=== PATIENT | female | born 1995 | race Caucasian/White ===

== ENCOUNTER 2016-12-13 16:15 | Emergency (ER) | payer MEDICAID ==
[~2016-12-13 16:15] MED LIST: FERRTAB2 PO; PNV11TAB PO
--- NOTE | 2016-12-13 17:20 | PD ---
HPI Chief Complaint Contractions, lower extremity edema, decreased movement, of vaginal discharge Date Seen: Dec 13, 2016 Time Seen: 17:16 Travel History International Travel<30 Days: No Contact w/Intl Traveler<30Days: No Known Affected Area: No History of Present Illness HPI 21-year-old at 38 weeks 1 day comes in complaining of cramping in the lower pelvis, lower extremity edema that has been present for couple weeks, some decreased movement that seems to have improved to soon as she arrives and watery vaginal discharge which started yesterday and happens every so often. Patient denies contractions or vaginal bleeding. Last pelvic examination was 2 weeks ago when she was closed at that time. Denies any antepartum complications Para: 0 : 1 History Past Medical History Medical History: Denies Significant Hx Past Surgical History Narrative Surgical Bilateral ureteral implantation as a child Tonsils and adenoids Family History Family History: Negative Social History Alcohol Use: No Tobacco Use: No Substance Abuse: No Allergies-Medications (Allergen,Severity, Reaction): Coded Allergies: No Known Allergies (Unverified , 12/07/16) Home Meds Active Scripts Multi-Vit/Iron-Folic Puwq-C59-Cxr C (Ferralet)90-1-0.012-120 mg Tab90 Tab PO DAILY #30 TAB Ref 2 Prov:Sybil Vasquez 12/01/16 Qqj202/FA/Omega3/Dha/Fish Oil ( Gummies)1 Each Tab.chew1 Bottle PO DAILY #120 BOTTLE Prov:Mt Ramachandran MD 11/25/16 Review of Systems Except as stated in HPI: all other systems reviewed are Neg Physical Exam Narrative GENERAL: Well-nourished, well-developed patient. SKIN: Warm and dry. HEAD: Normocephalic and atraumatic. EYES: No scleral icterus. No injection or drainage. ENT: No nasal drainage noted. Mucous membranes pink. Airway patent. NECK: Supple, trachea midline. No JVD. CARDIOVASCULAR: Regular rate and rhythm without murmurs, gallops, or rubs. RESPIRATORY: Breath sounds equal bilaterally. No accessory muscle use. ABDOMEN/GI: Abdomen soft, non-tender, bowel sounds present, no rebound, no guarding Gravid to [-38] weeks size Fundal Height: [-] GENITOURINARY: External Genitalia: intact and normal in appearance BUS glands: [-Normal posterior] Cervix: [-] Dilatation: [Closed-] Effacement: [50-] Station: [-High] Presentation: [-Vertex] Membranes: [intact amnisure negative] Uterine Contractions: [-Irritability] FHT's: Category: [-1] Baseline: [140-] Reactive: [-Moderate] Variability: [Moderate-] Decels: [-Absent] EXTREMITIES: No cyanosis or edema. BACK: Nontender without obvious deformity. No CVA tenderness. NEUROLOGICAL: Awake and alert. Motor and sensory grossly within normal limits. Five out of 5 muscle strength in all muscle groups. Normal speech. Data Data Vital Signs Reviewed: Yes MDM Plan 21-year-old with a category 1 heart rate tracing, GBS negative Patient is not labor cervix is closed Patient is normotensive with normal gestational edema Patient has a follow-up tomorrow Diagnosis Diagnosis: Primary Impression: 38 weeks gestation of Additional Impressions: False labor after 37 completed weeks of gestation Intact amniotic membranes during in third trimester Disposition: 01 DISCHARGE HOME Nicole Rockwell MD Dec 13, 2016 17:20
[2016-12-22] MEDS ORDERED: FERRTAB2 PO (13:19)
[2017-01-05] MEDS ORDERED: CIPR250T52 PO (11:19)
[2017-01-07] MEDS ORDERED: EPIF1AER2 TOPICAL (11:10)
[2017-01-07] MEDS ORDERED: [UNRECOGNIZED DRUG - CODE] TOPICAL (11:13)
== END 2016-12-13 20:33 | disposition home or self-care (01) ==
LOC: HOBED 16:15
DX: O47.1 False labor at or after 37 completed weeks of gestation (principal); Z3A.38 38 weeks gestation of pregnancy
CPT/HCPCS: 59025; 84112

== ENCOUNTER 2016-12-21 11:40 | Emergency (ER) | payer MEDICAID ==
[~2016-12-21] VITALS: Ht 157.5 cm; Wt 69.0 kg
[2016-12-21] VITALS (13 sets, daily range): BP systolic 120; BP diastolic 67; PULSE 103–124; RESP 18; TEMP 97.8
--- NOTE | 2016-12-21 13:45 | PD ---
HPI Chief Complaint Non reassuring heart tracing Date Seen: Dec 21, 2016 Travel History International Travel<30 Days: No Contact w/Intl Traveler<30Days: No Known Affected Area: No History of Present Illness HPI Patient is a 21 year old at 39-2/7 weeks gestation who presents today from [facility] for non-reassuring heart tracing. Patient states that she has been feeling the baby moving less over the past day. Caregiver warm and performed an NST and found to nonreassuring heart strip. They sent her here for further evaluation. Patient states that she has had a whitish vaginal discharge but denies any vaginal itching or burning. She has had pelvic cramping and an occasional contraction. She denies any vaginal bleeding, gush or leaking of fluid. 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 Family History Family History: Negative Social History Alcohol Use: No Tobacco Use: No Substance Abuse: No Allergies-Medications (Allergen,Severity, Reaction): Coded Allergies: No Known Allergies (Unverified , 12/21/16) Home Meds Active Scripts Multi-Vit/Iron-Folic Izzb-G07-Gbc C (Ferralet) 90-1-0.012-120 mg Tab, 90 TAB PO DAILY, #30 TAB 2 Refills Prov:Sybil Vasquez 12/01/16 Jjx426/FA/Omega3/Dha/Fish Oil ( Gummies) 1 Each Tab.chew, 1 BOTTLE PO DAILY for nutrition, #120 BOTTLE Prov:Mt Ramachandran MD 11/25/16 Review of Systems Except as stated in HPI: all other systems reviewed are Neg General / Constitutional: No: Fever, Chills Eyes: No: Blurred Vision, Visual changes HENT: Headaches (occasional) Cardiovascular: No: Chest Pain or Discomfort, Palpitations Respiratory: No: Cough, Short of Breath Gastrointestinal: No: Nausea, Vomiting, Abdominal Pain Genitourinary: Pelvic Pain, Discharge, No: Dysuria, Vaginal Bleeding Musculoskeletal: No: Edema Psychiatric: No: Substance Abuse Physical Exam Vital Signs Date Time Temp Pulse Resp B/P (MAP) Pulse Ox O2 Delivery O2 Flow Rate FiO2 12/21/16 13:04 97.8 121 18 120/67 (84) Narrative GENERAL: Well-nourished, well-developed patient. SKIN: Warm and dry. HEAD: Normocephalic and atraumatic. EYES: No scleral icterus. No injection or drainage. ENT: No nasal drainage noted. Mucous membranes pink. Airway patent. NECK: Supple, trachea midline. No JVD. CARDIOVASCULAR: Regular rate and rhythm without murmurs, gallops, or rubs. RESPIRATORY: Breath sounds equal bilaterally. No accessory muscle use. BREASTS: Bilateral exam showed no masses , no retractions, no nipple discharge. ABDOMEN/GI: Abdomen soft, non-tender, bowel sounds present, no rebound, no guarding Gravid to 39 weeks size GENITOURINARY: External Genitalia: intact and normal in appearance BUS glands: normal Cervix: posterior Dilatation: 1 Effacement: 0 Station: -2 Presentation: vertex Membranes: intact Uterine Contractions: none FHT's: Category: I Baseline: 135 Reactive: + Variability: moderate Decels: none EXTREMITIES: No cyanosis or edema. BACK: Nontender without obvious deformity. No CVA tenderness. NEUROLOGICAL: Awake and alert. Motor and sensory grossly within normal limits. Normal speech. Data Data Vital Signs Reviewed: Yes Orders Orders Vital Signs (Adult) .ON ADMISSION (12/21/16 12:45) ^ Labor Status (12/21/16 12:45) Us Ob Bpp Wo Nst W Repeat (12/21/16 12:45) Vital Signs (Adult) .ON ADMISSION (12/21/16 13:39) ^ Labor Status (12/21/16 13:39) ^ Non Stress Test (12/21/16 13:39) ^ Hydration (12/21/16 13:39) MDM Medical Record Reviewed: Yes Narrative Course / MDM 21 year old at 39-2/7 weeks gestation. 1. IUP- Category I tracing, reassuring. 2. Non-reassuring FHT as outpatient- Reactive NST and Category I tracing here. BPP 12/08. Discharge to home. judi Rockwell Diagnosis Diagnosis: Primary Impression: Decreased movement affecting management of in third trimester Qualified Codes: O36.8130 - Decreased movements, third trimester, not applicable or unspecified Disposition: 01 DISCHARGE HOME Condition: Stable Joanna Ibrahim MD, R3 Dec 21, 2016 13:45
[2016-12-22] MEDS ORDERED: FERRTAB2 PO (13:19)
[2017-01-05] MEDS ORDERED: CIPR250T52 PO (11:19)
[2017-01-07] MEDS ORDERED: EPIF1AER2 TOPICAL (11:10)
[2017-01-07] MEDS ORDERED: [UNRECOGNIZED DRUG - CODE] TOPICAL (11:13)
== END 2016-12-21 14:38 | disposition home or self-care (01) ==
LOC: HOBED 11:40
DX: O36.8130 Decreased fetal movements, third trimester, not applicable or unspecified (principal); Z3A.37 37 weeks gestation of pregnancy
CPT/HCPCS: 59025; 76816; 76819

== ENCOUNTER 2016-12-25 19:40 | Emergency (ER) | payer MEDICAID ==
--- NOTE | 2016-12-25 20:43 | PD ---
HPI Chief Complaint Mucousy discharge, contractions Date Seen: Dec 25, 2016 Time Seen: 20:38 Travel History International Travel<30 Days: No Contact w/Intl Traveler<30Days: No Known Affected Area: No History of Present Illness HPI 21-year-old primigravida at 39-6/7 weeks gestation who comes tonight with concerns that she might be in labor. She notes increasing cramping and watery mucousy discharge. She denies any bleeding. No decreased movement. Her recent examination was 1 cm. Weeks Gestation: 39 Para: 0 : 1 History Past Medical History Narrative Medical History of pyelonephritis with urologic surgery Anemia Obstetric History Obstetric History Primigravida Past Surgical History Narrative Surgical Urinary tract reconstruction ? appendectomy Family History Family History: Negative Social History Alcohol Use: No Tobacco Use: No Substance Abuse: No Allergies-Medications (Allergen,Severity, Reaction): Coded Allergies: No Known Allergies (Unverified , 12/24/16) Home Meds Active Scripts Multi-Vit/Iron-Folic Zrwp-O25-Rmr C (Ferralet) 90-1-0.012-120 mg Tab, 2 TAB PO DAILY, #60 TAB 2 Refills Prov:Nini Sweeney 12/22/16 Pqa696/FA/Omega3/Dha/Fish Oil ( Gummies) 1 Each Tab.chew, 1 BOTTLE PO DAILY for nutrition, #120 BOTTLE Prov:Mt Ramachandran MD 11/25/16 Review of Systems Except as stated in HPI: all other systems reviewed are Neg Physical Exam Narrative GENERAL: Well-nourished, well-developed patient. SKIN: Warm and dry. HEAD: Normocephalic and atraumatic. EYES: No scleral icterus. No injection or drainage. ENT: No nasal drainage noted. Mucous membranes pink. Airway patent. NECK: Supple, trachea midline. No JVD. CARDIOVASCULAR: Regular rate and rhythm without murmurs, gallops, or rubs. RESPIRATORY: Breath sounds equal bilaterally. No accessory muscle use. BREASTS: Bilateral exam showed no masses , no retractions, no nipple discharge. ABDOMEN/GI: Abdomen soft, non-tender, bowel sounds present, no rebound, no guarding Gravid to [-] weeks size Fundal Height: [-] GENITOURINARY: External Genitalia: intact and normal in appearance BUS glands: [-] Cervix: [-] Dilatation: [-1] Effacement: [70-] Station: [-2-] Presentation: [-] Membranes: [intact] Uterine Contractions: [-Mild irritability] FHT's: Category: [-] Baseline: [-] Reactive: [-Yes] Variability: [-] Decels: [-] EXTREMITIES: No cyanosis or edema. BACK: Nontender without obvious deformity. No CVA tenderness. NEUROLOGICAL: Awake and alert. Motor and sensory grossly within normal limits. Five out of 5 muscle strength in all muscle groups. Normal speech. Data Data Vital Signs Reviewed: Yes MDM Medical Record Reviewed: Yes Narrative Course / MDM Assessment: 39-6/7 weeks' primary not in labor Plan: Follow up for routine care Diagnosis Diagnosis: Primary Impression: 39 weeks gestation of Additional Impression: False labor after 37 completed weeks of gestation Disposition: 01 DISCHARGE HOME Condition: Good Patient Instructions: General Instructions, Having Your Baby: The Labor Process (GEN), Abdominal Pain in (ED) Additional Instructions: RETURN FOR CONTRACTIONS, LOSS OF FLUID (WATER BREAKING), VAGINAL BLEEDING, OR DECREASED MOVEMENT DRINK 8-10 LARGE GLASSES OF WATER EVERY DAY KEEP SCHEDULED APPOINTMENT WITH YOUR PROVIDER Departure Forms: Tests/Procedures Zachary Thomas MD Dec 25, 2016 20:43
[2017-01-05] MEDS ORDERED: CIPR250T52 PO (11:19)
[2017-01-07] MEDS ORDERED: EPIF1AER2 TOPICAL (11:10)
[2017-01-07] MEDS ORDERED: [UNRECOGNIZED DRUG - CODE] TOPICAL (11:13)
== END 2016-12-25 20:53 | disposition home or self-care (01) ==
LOC: HOBED 19:40
DX: O47.1 False labor at or after 37 completed weeks of gestation (principal); Z3A.39 39 weeks gestation of pregnancy
CPT/HCPCS: 59025; 84112

== ENCOUNTER 2016-12-30 12:14 | Emergency (ER) | payer MEDICAID ==
[2016-12-30 12:30] VITALS: PULSE 108
[2016-12-30 12:34] VITALS: TEMP 97.7
[2016-12-30 12:35] VITALS: BP 115/66; PULSE 104; PULSE 113; RESP 18
--- NOTE | 2016-12-30 12:47 | PD ---
HPI Chief Complaint Non-reactive NST Date Seen: Dec 30, 2016 Travel History International Travel<30 Days: No Contact w/Intl Traveler<30Days: No History of Present Illness HPI Patient is a 21-year-old at 40-4/7 weeks gestation who [facility] from [facility] for a non-reactive NST. She states that she has been feeling less movement for the past three weeks. She had a BPP on 12/21 that was 8/8. She denies any vaginal bleeding or discharge. No gush or leaking of fluid. No contractions. 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 Family History Family History: Negative Social History Alcohol Use: No Tobacco Use: No Substance Abuse: No Allergies-Medications (Allergen,Severity, Reaction): Coded Allergies: No Known Allergies (Unverified , 12/30/16) Home Meds Active Scripts Multi-Vit/Iron-Folic Lzmd-V57-Srg C (Ferralet) 90-1-0.012-120 mg Tab, 2 TAB PO DAILY, #60 TAB 2 Refills Prov:Nini Sweeney 12/22/16 Cnb435/FA/Omega3/Dha/Fish Oil ( Gummies) 1 Each Tab.chew, 1 BOTTLE PO DAILY for nutrition, #120 BOTTLE Prov:Mt Ramachandran MD 11/25/16 Review of Systems Except as stated in HPI: all other systems reviewed are Neg General / Constitutional: No: Fever, Chills Eyes: No: Blurred Vision, Visual changes HENT: No: Headaches Cardiovascular: No: Chest Pain or Discomfort, Palpitations Respiratory: No: Cough, Short of Breath Gastrointestinal: No: Nausea, Vomiting, Abdominal Pain Genitourinary: Discharge, No: Dysuria, Hematuria, Pelvic Pain, Vaginal Bleeding Musculoskeletal: No: Edema Psychiatric: No: Substance Abuse Physical Exam Vital Signs Date Time Temp Pulse Resp B/P (MAP) Pulse Ox O2 Delivery O2 Flow Rate FiO2 12/30/16 12:35 18 12/30/16 12:35 104 115/66 (82) 12/30/16 12:35 113 12/30/16 12:34 97.7 12/30/16 12:30 108 Narrative GENERAL: Well-nourished, well-developed patient. SKIN: Warm and dry. HEAD: Normocephalic and atraumatic. EYES: No scleral icterus. No injection or drainage. ENT: No nasal drainage noted. Mucous membranes pink. Airway patent. NECK: Supple, trachea midline. No JVD. CARDIOVASCULAR: Regular rate and rhythm without murmurs, gallops, or rubs. RESPIRATORY: Breath sounds equal bilaterally. No accessory muscle use. BREASTS: Bilateral exam showed no masses , no retractions, no nipple discharge. ABDOMEN/GI: Abdomen soft, non-tender, bowel sounds present, no rebound, no guarding Gravid to 40 weeks size GENITOURINARY: External Genitalia: intact and normal in appearance BUS glands: normal Cervix: posterior Dilatation: 1 Effacement: 50 Station: -2 Presentation: vertex Membranes: intact Uterine Contractions: occasional FHT's: Category: I Baseline: 140 Reactive: - Variability: moderate Decels: occasional variable decelerations EXTREMITIES: No cyanosis or edema. BACK: Nontender without obvious deformity. No CVA tenderness. NEUROLOGICAL: Awake and alert. Motor and sensory grossly within normal limits. Normal speech. Data Data Vital Signs Reviewed: Yes Orders Orders Vital Signs (Adult) .ON ADMISSION (12/30/16 12:28) ^ Labor Status (12/30/16 12:28) ^ Non Stress Test (12/30/16 12:28) ^ Hydration (12/30/16 12:28) Group B Strep: Negative MDM Medical Record Reviewed: Yes Narrative Course / MDM 21 year old at 40-4/7 weeks gestation. 1. IUP- Category I tracing 2. Non-reactive NST as outpatient- repeat NST, if reactive will obtain BPP, if non-reactive will induce dw Dr. Kirkland Addendum: Reactive NST, will obtain BPP for further evaluation. BPP 12/08. Will discharge home. Patient scheduled to have reevaluation of SIMA on Monday 01/01. Diagnosis Diagnosis: Primary Impression: Decreased movement Qualified Codes: O36.8130 - Decreased movements, third trimester, not applicable or unspecified Additional Impression: 40 weeks gestation of Disposition: DISCHARGE HOME Condition: Stable Joanna Ibrahim MD, R3 Dec 30, 2016 12:47
[2017-01-05] MEDS ORDERED: CIPR250T52 PO (11:19)
[2017-01-07] MEDS ORDERED: EPIF1AER2 TOPICAL (11:10)
[2017-01-07] MEDS ORDERED: [UNRECOGNIZED DRUG - CODE] TOPICAL (11:13)
== END 2016-12-30 15:43 | disposition home or self-care (01) ==
LOC: HOBED 12:14
DX: O36.8130 Decreased fetal movements, third trimester, not applicable or unspecified (principal); Z3A.40 40 weeks gestation of pregnancy; Z79.899 Other long term (current) drug therapy
CPT/HCPCS: 59025; 76819

== ENCOUNTER 2017-01-01 06:13 | Inpatient (IN) | payer MEDICAID ==
[2017-01-01] VITALS (11 sets, daily range): BP systolic 90–129; BP diastolic 55–79; PULSE 76–103; RESP 18; TEMP 97.6–98.3
[~2017-01-01] VITALS: Ht 157.5 cm; Wt 71.0 kg
[2017-01-01] MEDS: LACTATED RINGER'S 1000 ML INJ 1,000 ML IV SCH ×3 (05:05→17:40)
[2017-01-01] MEDS ORDERED: LACTATED RINGER'S 1000 ML INJ 1,000 ML IV PRN (06:31)
[2017-01-01] MEDS ORDERED: SODIUM CHLORID 0.9% 500 ML INJ 500 ML IV PRN (06:45)
[2017-01-01] MEDS ORDERED: LIDOCAINE HCL 1% 50 ML VIAL INFIL PRN (06:45)
[2017-01-01] MEDS ORDERED: LIDOCAINE HCL 1% 50 ML VIAL I-DERMAL PRN (06:45)
[2017-01-01] MEDS ORDERED: CITRIC ACID-SODIUM CITRATE LIQ 30 ML UDC PO SCH (06:45)
[2017-01-01] MEDS ORDERED: OXYTOCIN 30 UNITS-500ML PREMIX 500 ML IV ONE (06:45)
[2017-01-01] MEDS ORDERED: SODIUM CHLOR 0.9% 1000 ML INJ 1,000 ML IV PRN (06:51)
[2017-01-01] MEDS ORDERED: SODIUM CHLOR 0.9% 1000 ML INJ 1,000 ML OTHER PRN (06:54)
[2017-01-01] MEDS ORDERED: MISOPROSTOL 25 MCG SUPP VAGINAL ONE ×2 (07:00→14:30)
[2017-01-01] MEDS ORDERED: SODIUM CHLORIDE 0.9% FLUSH 10 ML FLUSH IV FLUSH PRN ×2 (07:00→13:00)
--- NOTE | 2017-01-01 07:15 | HHI.HP ---
HPI Chief Complaint Induction of labor Date Seen: Jan 01, 2017 (Joanna Ibrahim MD, R3) Travel History International Travel<30 Days: No Contact w/Intl Traveler<30Days: No (Joanna Ibrahim MD, R3) History of Present Illness HPI Patient is a 21-year-old at 40-6/7 weeks gestation who presents today for induction of labor at term. She denies any vaginal bleeding or discharge. No gush or leaking of fluid. Positive movement. No contractions. care with [facility]. 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 (Joanna Ibrahim MD, R3) Family History Family History: Negative (Joanna Ibrahim MD, R3) Social History Alcohol Use: No Tobacco Use: No Substance Abuse: No (Joanna Ibrahim MD, R3) Allergies-Medications (Allergen,Severity, Reaction): Coded Allergies: No Known Allergies (Unverified , 12/30/16) Home Meds Active Scripts Multi-Vit/Iron-Folic Zukz-G78-Qll C (Ferralet) 90-1-0.012-120 mg Tab, 2 TAB PO DAILY, #60 TAB 2 Refills Prov:Nini Sweeney 12/22/16 Wif033/FA/Omega3/Dha/Fish Oil ( Gummies) 1 Each Tab.chew, 1 BOTTLE PO DAILY for nutrition, #120 BOTTLE Prov:Mt Ramachandran MD 11/25/16 Review of Systems Except as stated in HPI: all other systems reviewed are Neg General / Constitutional: No: Fever, Chills Eyes: No: Blurred Vision, Visual changes HENT: No: Headaches Cardiovascular: No: Chest Pain or Discomfort, Palpitations Respiratory: No: Cough, Short of Breath Gastrointestinal: No: Nausea, Vomiting, Abdominal Pain Genitourinary: No: Dysuria, Hematuria, Pelvic Pain, Discharge, Vaginal Bleeding Musculoskeletal: No: Edema Neurologic: No: Headache Psychiatric: No: Substance Abuse (Joanna Ibrahim MD, R3) Physical Exam Vital Signs Date Time Temp Pulse Resp B/P (MAP) Pulse Ox O2 Delivery O2 Flow Rate FiO2 01/01/17 06:45 97.9 18 01/01/17 06:31 103 129/79 (96) Narrative GENERAL: Well-nourished, well-developed patient. SKIN: Warm and dry. HEAD: Normocephalic and atraumatic. EYES: No scleral icterus. No injection or drainage. ENT: No nasal drainage noted. Mucous membranes pink. Airway patent. NECK: Supple, trachea midline. No JVD. CARDIOVASCULAR: Regular rate and rhythm without murmurs, gallops, or rubs. RESPIRATORY: Breath sounds equal bilaterally. No accessory muscle use. ABDOMEN/GI: Abdomen soft, non-tender, bowel sounds present, no rebound, no guarding Gravid to 40 weeks size GENITOURINARY: External Genitalia: intact and normal in appearance BUS glands: normal Cervix: posterior Dilatation: 1 Effacement: 60 Station: -2 Presentation: vertex Membranes: intact Uterine Contractions: occasional FHT's: Category: I Baseline: 138 Reactive: + Variability: moderate Decels: none EXTREMITIES: No cyanosis or edema. BACK: Nontender without obvious deformity. No CVA tenderness. NEUROLOGICAL: Awake and alert. Motor and sensory grossly within normal limits. Normal speech. (Joanna Ibrahim MD, R3) Caprini VTE Risk Assessment Caprini VTE Risk Assessment: No/Low Risk (score <= 1) Caprini Risk Assessment Model Point Value = 1 Point Value = 2 Point Value = 3 Point Value = 5 Age 41-60 Minor surgery BMI > 25 kg/m2 Swollen legs Varicose veins or History of unexplained or recurrent spontaneous Oral contraceptives or hormone replacement Sepsis (< 1 month) Serious lung disease, including pneumonia (< 1 month) Abnormal pulmonary function Acute myocardial infarction Congestive heart failure (< 1 month) History of inflammatory bowel disease Medical patient at bed rest Age 61-74 Arthroscopic surgery Major open surgery (> 45 min) Laparoscopic surgery (> 45 min) Malignancy Confined to bed (> 72 hours) Immobilizing plaster cast Central venous access Age >= 75 History of VTE Family history of VTE Factor V Leiden Prothrombin [id number] Lupus anticoagulant Anticardiolipin antibodies Elevated serum homocysteine Heparin-induced thrombocytopenia Other congenital or acquired thrombophilia Stroke (< 1 month) Elective arthroplasty Hip, pelvis, or leg fracture Acute spinal cord injury (< 1 month) Prophylaxis Regimen Total Risk Factor Score Risk Level Prophylaxis Regimen 0-1 Low Early ambulation 2 Moderate Order ONE of the following: *Sequential Compression Device (SCD) *Heparin 5000 units SQ BID 3-4 Higher Order ONE of the following medications: *Heparin 5000 units SQ TID *Enoxaparin/Lovenox 40 mg SQ daily (WT < 150 kg, CrCl > 30 mL/min) *Enoxaparin/Lovenox 30 mg SQ daily (WT < 150 kg, CrCl > 10-29 mL/min) *Enoxaparin/Lovenox 30 mg SQ BID (WT < 150 kg, CrCl > 30 mL/min) AND/OR *Sequential Compression Device (SCD) 5 or more Highest Order ONE of the following medications: *Heparin 5000 units SQ TID (Preferred with Epidurals) *Enoxaparin/Lovenox 40 mg SQ daily (WT < 150 kg, CrCl > 30 mL/min) *Enoxaparin/Lovenox 30 mg SQ daily (WT < 150 kg, CrCl > 10-29 mL/min) *Enoxaparin/Lovenox 30 mg SQ BID (WT < 150 kg, CrCl > 30 mL/min) AND *Sequential Compression Device (SCD) (Joanna Ibrahim MD, R3) Data Data Vital Signs Reviewed: Yes Orders Orders Admit To Inpatient (01/01/17 ) Code Status (01/01/17 06:31) Vital Signs (Adult) .Per protocol (01/01/17 06:31) Activity Oob Ad Leila (01/01/17 06:31) Heart (01/01/17 06:31) Amnioinfusion (01/01/17 06:31) Urinary Catheter Management .ONCE (01/01/17 06:31) Diet Liquid (01/01/17 Breakfast) Lactated Ringer's 1000 Ml Inj (Lr 1000 M (01/01/17 06:31) Lactated Ringer's 1000 Ml Inj (Lr 1000 M (01/01/17 06:31) Sodium Chlorid 0.9% 500 Ml Inj (Ns 500 M (01/01/17 06:45) Sodium Chlor 0.9% 1000 Ml Inj (Ns 1000 M (01/01/17 06:51) Lidocaine 1% Inj (50 Ml) (Xylocaine 1% I (01/01/17 06:45) Citric Acid-Sodium Citrate Liq (Bicitra (01/01/17 06:45) Fentanyl Inj (Fentanyl Inj) (01/01/17 06:45) Fentanyl Inj (Fentanyl Inj) (01/01/17 06:45) Complete Blood Count With Diff (01/01/17 06:31) Hold Clot (01/01/17 06:31) Abo/Rh Blood Type (01/01/17 06:31) Urinalysis - C+S If Indicated (01/01/17 06:31) Resp Oxygen Non Rebreathe Mask (01/01/17 ) ^ Epidural / Intrathecal Infus (01/01/17 06:31) Oxytocin 30 Units-500ml Premix (Pitocin (01/01/17 06:45) Lidocaine 1% Inj (50 Ml) (Xylocaine 1% I (01/01/17 06:45) Light Mineral Oil (Muri-Lube Oil) (01/01/17 06:45) Inpatient Certification (01/01/17 ) Specimen To Be Collected PRN (01/01/17 06:31) ^ Labor Induction (01/01/17 06:54) ^ Vaginal Insert (01/01/17 06:54) ^ Vaginal Lavage (01/01/17 06:54) Heart (01/01/17 06:54) Sodium Chloride 0.9% Flush (Ns Flush) (01/01/17 09:00) Sodium Chloride 0.9% Flush (Ns Flush) (01/01/17 07:00) Sodium Chlor 0.9% 1000 Ml Inj (Ns 1000 M (01/01/17 06:54) Misoprostol Supp (Cytotec Supp) (01/01/17 07:00) Misoprostol Supp (Cytotec Supp) (01/01/17 11:00) Group B Strep: Negative (Jaonna Ibrahim MD, R3) Assessment/Plan Problem List: (1) 40 weeks gestation of ICD Codes: Z3A.40 - 40 weeks gestation of Assessment and Plan 21 year old at 40-6/7 weeks gestation. 1. IUP- Category I tracing, reassuring. 2. IOL for term- Cytotec for cervical ripening followed by Pitocin 3. GBS negative. dw Dr. Sparks and Dr. Painting R1 (Joanna Ibrahim MD, R3) Attending Attestation Patient seen and evaluated with resident under direct supervision, agree with assessment and plan. (Zcahary Thomas MD) Joanna Ibrahim MD, R3 Jan 01, 2017 07:15 Zachary Thomas MD Jan 01, 2017 18:57
[2017-01-01 07:30] LABS: AUTOMATED NEUTROPHIL # 7.7 TH/MM3 (1.8-7.7); BASOPHIL % 0.2 % (0.0-2.0); EOSINOPHIL # 0.1 TH/MM3 (0-0.4); EOSINOPHIL % 1.1 % (0.0-4.0); HEMATOCRIT 36.6 % (35.0-46.0); HEMO FLAGS DIFF FINAL; LYMPH % 17.5 % (9.0-44.0); LYMPHOCYTE # 2.1 TH/MM3 (1.0-4.8); MEAN CELL VOLUME 74.1 FL (80.0-100.0); MEAN CORPUSCULAR HEMOGLOBIN 23.6 PG (27.0-34.0); MEAN CORPUSCULAR HGB CONC 31.9 % (32.0-36.0); MONO % 15.3 % (0.0-8.0); NEUT % 65.9 % (16.0-70.0); PLATELET COUNT 193 TH/MM3 (150-450); RED BLOOD COUNT 4.94 MIL/MM3 (4.00-5.30); RED CELL DISTRIBUTION WIDTH 24.5 % (11.6-17.2); WHITE BLOOD COUNT 11.7 TH/MM3 (4.0-11.0)
[2017-01-01 07:44] LABS: BACTERIA, URINE OCC /hpf; BLOOD, URINE NEG (NEG); GLUCOSE,URINE NEG (NEG); KETONE, URINE NEG (NEG); MUCUS URINE FEW /lpf (OCC); NITRITE,URINE NEG (NEG); PH, URINE 6.5 (5.0-8.5); SQUAMOUS EPITHELIAL CELL URINE 9 /hpf (0-5); URINE COLOR YELLOW (YELLW/STRAW)
[2017-01-01 07:46] LABS: COMMENT (UR) CULT NOT INDICATED; CULTURE IF INDICATED CULT NOT INDICATED
[2017-01-01] MEDS: SODIUM CHLORIDE 0.9% FLUSH 10 ML FLUSH IV FLUSH SCH ×2 (09:00→21:00)
[2017-01-01] MEDS ORDERED: MISOPROSTOL 25 MCG SUPP VAGINAL PRN ×3 (11:00→17:00)
[2017-01-01] MEDS ORDERED: SODIUM CHLORIDE 0.9% FLUSH 10 ML FLUSH IV FLUSH SCH (21:00)
[2017-01-02] VITALS (33 sets, daily range): BP systolic 95–138; BP diastolic 46–95; PULSE 64–103; RESP 14–18; TEMP 97.7–98.5; O2SAT 100
[2017-01-02] MEDS ORDERED: ONDANSETRON HCL 4 MG/2 ML VIAL ONE (00:21)
[2017-01-02] MEDS ORDERED: ONDANSETRON HCL 4 MG/2 ML VIAL IV PUSH PRN (00:45)
[2017-01-02] MEDS ORDERED: OXYTOCIN 30 UNITS-500ML PREMIX 500 ML ONE (01:35)
[2017-01-02] MEDS ORDERED: OXYTOCIN 30 UNITS/NS 500ML PREMIX IV SCH (02:00)
[2017-01-02] MEDS ORDERED: ePHEDrine/NS 25 MG/5 ML SYR ONE (03:51)
[2017-01-02] MEDS ORDERED: fentaNYL 2MCG-BUPIV 0.125% INJ 100 ML ONE (03:51)
[2017-01-02] MEDS ORDERED: DO NOT ADMINISTER ANTICOAGULANTS PRN (05:00)
[2017-01-02] MEDS ORDERED: NO SYSTEM NARCOTICS PRN (05:00)
[2017-01-02] MEDS ORDERED: fentaNYL 2MCG-BUPIV 0.125% 100 ML EPIDURAL SCH (05:00)
[2017-01-02] MEDS ORDERED: ePHEDrine/NS 25 MG/5 ML SYR IV PRN (05:00)
[2017-01-02] MEDS: MINERAL OIL 10 ML VIAL TOPICAL PRN (07:38)
--- NOTE | 2017-01-02 07:59 | PD.OB.DELI ---
Weeks gestation: 41 Gest age assessed date: Jan 02, 2017 Gest age assessed time: 07:29 Pt started active labor?: Yes Medical induction of labor?: Yes Artificial rupture of membrane: Yes Artificial ROM date: Jan 01, 2017 Anesthesia: Epidural Episiotomy: None Vaginal Delivery: Normal, Spontaneous Presentation: Occiput anterior Nuchal Cord: x2 Delayed cord clamping (45 sec): Yes Infant: Female Delivery date: Jan 02, 2017 Delivery time: 07:29 One Minute : 8 Five Minute : 9 Weight: 6#14 Placenta: Spontaneous delivery, Intact, 3 vessel cord Laceration: Vaginal laceration, 2 deg Repair: Vicryl running Estimated blood loss: 200 Zachary Thomas MD Jan 02, 2017 07:59
[2017-01-02] MEDS ORDERED: SODIUM CHLORIDE 0.9% FLUSH 10 ML FLUSH IV FLUSH PRN (08:00)
[2017-01-02] MEDS ORDERED: ZOLPIDEM TARTRATE 5 MG TAB PO PRN (08:00)
[2017-01-02] MEDS ORDERED: BENZOCAINE 20% TOPICAL SPRAY 60 ML CAN TOPICAL PRN (08:00)
[2017-01-02] MEDS ORDERED: OXYTOCIN 30 UNITS-500ML PREMIX 500 ML IV SCH (08:00)
[2017-01-02] MEDS ORDERED: WITCH HAZEL 50%/GLYCERIN 12.5% 40 PAD JAR TOPICAL PRN (08:00)
[2017-01-02] MEDS ORDERED: ONDANSETRON ODT 4 MG TAB PO PRN (08:00)
[2017-01-02] MEDS ORDERED: ALUMINUM/MAGNESIUM/SIMETH 30 ML CUP PO PRN (08:00)
[2017-01-02] MEDS ORDERED: SODIUM CHLORIDE 0.9% FLUSH 10 ML FLUSH IV FLUSH SCH (09:00)
[2017-01-02] MEDS ORDERED: DOCUSATE SODIUM 50 MG/SENNA 8.6 MG TAB PO PRN (09:00)
[2017-01-02] MEDS: ACETAMINOPHEN 325 MG TAB PO PRN (14:50)
[2017-01-02] MEDS: IBUPROFEN 600 MG TAB PO PRN (14:50)
[2017-01-02] MEDS ORDERED: MEASLES, MUMPS, RUBELLA VACCINE 0.5 ML VIAL SQ ONE (16:00)
[2017-01-02] MEDS ORDERED: DIPHTH/TETANUS/ACEL PERTUSSIS (BOOSTER) 0.5 ML VIAL/PFS IM ONE (16:00)
--- NOTE | 2017-01-03 08:34 | HHI.OB ---
Subjective Post Day: 1 Remarks Patient is a 21-year-old delivered at 40 weeks and 6 days. Patient is day 1 after after induction of labor with Cytotec and Pitocin. Patient's pain is well-controlled. Patient reports eating and drinking without any nausea or vomiting. Patient reports minimal bleeding. Patient has passed gas but no bowel movements. Patient is walking without lower extremity pain or shortness of breath. Patient reports desire for outpatient contraception and breast-feeding. Objective Vitals/I&O Vital Signs Date Time Temp Pulse Resp B/P (MAP) Pulse Ox O2 Delivery O2 Flow Rate FiO2 01/02/17 20:49 97.8 77 18 110/75 (87) 01/02/17 09:50 97.7 67 14 01/02/17 09:50 113/62 (79) 01/02/17 09:00 18 01/02/17 08:54 74 109/54 (72) Objective Remarks GENERAL: Well-nourished, well-developed patient. CARDIOVASCULAR: Regular rate and rhythm without murmurs, gallops, or rubs. RESPIRATORY: Breath sounds equal bilaterally. No accessory muscle use. ABDOMEN/GI: Abdomen soft, non-tender. Fundus: Firm, non-tender at umbilicus. GENITOURINARY: Light to moderate bleeding. EXTREMITIES: No cyanosis or edema, non-tender, without signs of DVT. Medications and IVs Current Medications Medications (Trade) Dose Ordered Sig/Stephanie Route Start Time Stop Time Status Last Admin Lactated Ringer's 1,000 ml @ 125 mls/hr Q8H IV 01/01/17 06:31 01/01/17 05:05 Lactated Ringer's 1,000 ml @ 3,000 mls/hr Q20M PRN IV 01/01/17 06:31 Sodium Chloride 1,000 ml @ 100 mls/hr Q10H PRN IV 01/01/17 06:51 (Xylocaine 1% Inj (50 ml)) 0.1 ml UNSCH X1 PRN I-DERMAL 01/01/17 06:45 01/04/17 06:44 (Bicitra Liq) 30 ml DIRECTOR OF TECHNOLOGY PO 01/01/17 06:45 01/05/17 06:44 (fentaNYL INJ) 50 mcg Q1H PRN IV PUSH 01/01/17 06:45 (fentaNYL INJ) 100 mcg Q1H PRN IV PUSH 01/01/17 06:45 (Muri-Lube Oil) 10 ml UNSCH PRN TOPICAL 01/01/17 06:45 01/02/17 07:38 (NS Flush) 2 ml BID IV FLUSH 01/01/17 09:00 (NS Flush) 2 ml UNSCH PRN IV FLUSH 01/01/17 07:00 (NS Flush) 2 ml BID IV FLUSH 01/01/17 21:00 (NS Flush) 2 ml UNSCH PRN IV FLUSH 01/01/17 13:00 (Zofran Inj) 4 mg Q6H PRN IV PUSH 01/02/17 00:45 01/02/17 00:25 Oxytocin 500 ml @ 0 mls/hr TITRATE IV 01/02/17 02:00 01/02/17 02:08 Fentanyl/ Bupivacaine HCl 100 ml @ 0 mls/hr TITRATE EPIDURAL 01/02/17 05:00 01/02/17 05:06 (NS Flush) 2 ml BID IV FLUSH 01/02/17 09:00 (NS Flush) 2 ml UNSCH PRN IV FLUSH 01/02/17 08:00 (Tylenol) 650 mg Q4H PRN PO 01/02/17 08:00 01/02/17 14:50 (Motrin) 600 mg Q6H PRN PO 01/02/17 08:00 01/02/17 14:50 (Americaine 20% Top Spr) 1 spray Q4H PRN TOPICAL 01/02/17 08:00 01/02/17 18:42 (Tucks Pads) 1 applic QID PRN TOPICAL 01/02/17 08:00 01/02/17 18:42 (Franci-Colace) 2 tab Q12HR PRN PO 01/02/17 09:00 (Ambien) 5 mg HS PRN PO 01/02/17 08:00 (Mag-Al Plus Susp Liq) 15 ml Q8H PRN PO 01/02/17 08:00 (Zofran Odt) 4 mg Q6H PRN PO 01/02/17 08:00 Assessment/Plan Problem List: (1) 40 weeks gestation of ICD Codes: Z3A.40 - 40 weeks gestation of (2) (spontaneous vaginal delivery) ICD Codes: O80 - Encounter for full-term uncomplicated delivery Assessment and Plan Patient is a 21-year-old delivered at 40 weeks and 6 days. Patient is day 1 after after induction of labor with Cytotec and Pitocin. Patient was counseled to do 6 weeks of pelvic rest. Patient was counseled to follow up in 6 weeks. Patient requested follow-up and contraception. --AF VSS --Continue routine care --Motrin and Percocet when necessary for pain --Encourage OOB --Pelvic rest for 6 weeks will need follow-up appointment at that time. --Contraception: Patient will arrange with her outpatient provider --Anticipate discharge today or tomorrow d/w Dr. Isael Beckett,Milind Stein MD R2 Jan 03, 2017 08:34
[2017-01-03] MEDS ORDERED: IBUP-232 PO (08:38)
--- NOTE | 2017-01-03 08:38 | HHI.DCPOC ---
Discharge Care Plan Diagnosis: (1) 40 weeks gestation of (2) (spontaneous vaginal delivery) Report Symptoms to Your Doctor -Temperature above 100.5 degrees -Redness, of incision or excessive or foul smelling drainage -Unusual pain or calf pain -Increased vaginal bleeding -Painful or difficulty urinating -Feelings of extreme sadness or anxiety after 2 weeks Goals to Promote Your Health * To prevent worsening of your condition and complications, please follow-up with her doctor. * To maintain your health at the optimal level, please follow your doctor's recommendations. Directions to Meet Your Goals Take your medications as prescribed Follow your dietary instruction Follow activity as directed Ensure plenty of rest for recovery Drink fluids for hydration Keep your appointments as scheduled Take your immunizations and boosters as scheduled If your symptoms worsen call your PCP, if no PCP go to Urgent Care Center or Emergency Room Smoking is Dangerous to Your Health. Avoid second hand smoke Call the 24-hour crisis hotline for domestic abuse at Milind Beckett MD R2 Jan 03, 2017 08:38
[2017-01-03 09:20] VITALS: BP 113/64; PULSE 73; RESP 14; TEMP 98
[2017-01-03] MEDS: ACETAMINOPHEN 325 MG TAB PO PRN (12:27)
[2017-01-03] MEDS: IBUPROFEN 600 MG TAB PO PRN (12:28)
[2017-01-05] MEDS ORDERED: CIPR250T52 PO (11:19)
[2017-01-07] MEDS ORDERED: EPIF1AER2 TOPICAL (11:10)
[2017-01-07] MEDS ORDERED: [UNRECOGNIZED DRUG - CODE] TOPICAL (11:13)
== END 2017-01-03 14:50 | disposition home or self-care (01) | DRG 775 ==
LOC: H2EB 06:13 → H1EA 01-02 10:03
PROVIDERS: ADMIT Obstetrics & Gynecology; ATTEND Obstetrics & Gynecology
PROC: 3E0P7GC Introduction of Other Therapeutic Substance into Female Reproductive, Via Natural or Artificial Opening (ICD-10-PCS; 2017-01-01)
PROC: 10907ZC Drainage of Amniotic Fluid, Therapeutic from Products of Conception, Via Natural or Artificial Opening (ICD-10-PCS; 2017-01-01)
PROC: 10E0XZZ Delivery of Products of Conception, External Approach (ICD-10-PCS; principal; 2017-01-02)
PROC: 0UQGXZZ Repair Vagina, External Approach (ICD-10-PCS; 2017-01-02)
PROC: 00HU33Z Insertion of Infusion Device into Spinal Canal, Percutaneous Approach (ICD-10-PCS; 2017-01-02)
PROC: 3E0R3CZ (ICD-10-PCS; 2017-01-02)
DX: O48.0 Post-term pregnancy (principal); O71.4 Obstetric high vaginal laceration alone; O69.81X0 Labor and delivery complicated by cord around neck, without compression, not applicable or unspecified; Z3A.41 41 weeks gestation of pregnancy; Z37.0 Single live birth
CPT/HCPCS: 59025; 76819; 81001; 85025; 86900; 86901; J2405; J2590; J7120

== ENCOUNTER 2017-09-29 19:51 | Emergency (ER) | payer MEDICAID ==
[~2017-09-29] VITALS: Ht 157.5 cm; Wt 62.1 kg
[~2017-09-29 19:51] MED LIST changes: +CIPR250T52 PO; +EPIF1AER2 TOPICAL; -FERRTAB2 PO; +IBUP-232 PO; +[UNRECOGNIZED DRUG - CODE] TOPICAL
[2017-09-29 19:59] VITALS: BP 113/61; PULSE 106; RESP 16; TEMP 97.8; O2SAT 98
[2017-09-29 20:21] LABS: BILIRUBIN, URINE NEG (NEG); BLOOD, URINE NEG (NEG); GLUCOSE,URINE NEG (NEG); KETONE, URINE NEG (NEG); NITRITE,URINE NEG (NEG); PH, URINE 7.5 (5.0-8.5); URINE COLOR YELLOW (YELLW/STRAW); URINE LEUKOCYTE ESTERASE NEG (NEG)
[2017-09-29 20:27] LABS: SQUAMOUS EPITHELIAL CELL URINE 0-5 /hpf (0-5); WBC, URINE 0-2 /hpf (0-5)
[2017-09-29] MEDS ORDERED: PNV11TAB PO ×2 (21:15→21:26)
--- NOTE | 2017-09-29 21:27 | PD ---
HPI Chief Complaint: Abdominal Pain Time Seen by Provider: 20:53 Travel History International Travel<30 days: No Contact w/Intl Traveler<30days: No History of Present Illness HPI Patient is a female oconnell intermittent nausea and vomiting. Patient states she she has not had a period in a few months, states the beginning of this she was having some vaginal spotting. She has not yet followed up with an GASKET WINDER. She is concerned that she has not yet established an GASKET WINDER and wants to make sure her baby is she has some cough and congestion but no vaginal bleeding vaginal discharge loss of fluid currently, no abdominal pain, no leg swelling no visual changes and no dysuria. He states his symptoms are mild, for the past few days, gradually worsening, associated signs and symptoms and context as above PFSH Past Medical History Diminished Hearing: No Tetanus Vaccination: Unknown Influenza Vaccination: No ?: : 2 Para: 1 Past Surgical History Genitourinary Surgery: Yes (RECONSTUCTIVE SURGERY ON URETERS A CHILD) Social History Alcohol Use: No Tobacco Use: No Substance Use: No Allergies-Medications (Allergen,Severity, Reaction): Coded Allergies: No Known Allergies (Unverified Adverse Reaction, Unknown, 09/29/17) Reported Meds & Prescriptions Reported Meds & Active Scripts Active Gummies (Hhg552/FA/Omega3/Dha/Fish Oil) 1 Each Tab.chew 1 Bottle PO DAILY Reported Gummies (Zbt529/FA/Omega3/Dha/Fish Oil) 400 Mcg-32.5 Mg (25 Mg-7.5 Mg) Tab.chew PO DAILY Review of Systems Except as stated in HPI: all other systems reviewed are Neg Physical Exam Narrative GENERAL: Well-developed well-nourished quite pleasant female in no obvious distress SKIN: Focused skin assessment warm/dry. HEAD: Atraumatic. Normocephalic. EYES: Pupils equal and round. No scleral icterus. No injection or drainage. ENT: No nasal bleeding or discharge. Mucous membranes pink and moist. NECK: Trachea midline. No JVD. CARDIOVASCULAR: Minimally tachycardic with regular rhythm. No murmur appreciated. RESPIRATORY: No accessory muscle use. Clear to auscultation. Breath sounds equal bilaterally. GASTROINTESTINAL: Abdomen soft, non-tender, gravid. Hepatic and splenic margins not palpable. Nontender, benign, no rebound no percussive tenderness peer GENITOURINARY: Declined by patient peer MUSCULOSKELETAL: No obvious deformities. No clubbing. No cyanosis. No edema. NEUROLOGICAL: Awake and alert. No obvious cranial nerve deficits. Motor grossly within normal limits. Normal speech. PSYCHIATRIC: Appropriate mood and affect; insight and judgment normal. Data Data Last Documented VS Vital Signs Date Time Temp Pulse Resp B/P (MAP) Pulse Ox O2 Delivery O2 Flow Rate FiO2 09/29/17 21:50 88 20 118/68 (85) 99 09/29/17 19:59 97.8 Orders Orders Ed Urine Pregnancytest Poc (09/29/17 19:55) Urinalysis - C+S If Indicated (09/29/17 19:55) Ed Poc Ultrasound (09/29/17 ) Electrocardiogram (09/29/17 20:07) Ed Poc Ultrasound (09/29/17 ) Ed Discharge Order (09/29/17 21:27) Labs Laboratory Tests Test 09/29/17 20:00 Urine Color YELLOW Urine Turbidity CLEAR Urine pH 7.5 Urine Specific [place] LESS/EQUAL 1.005 Urine Protein NEG mg/dL Urine Glucose (UA) NEG mg/dL Urine Ketones NEG mg/dL Urine Occult Blood NEG Urine Nitrite NEG Urine Bilirubin NEG Urine Urobilinogen 0.2 MG/DL Urine Leukocyte Esterase NEG Urine WBC 0-2 /hpf Urine Squamous Epithelial Cells 0-5 /hpf Microscopic Urinalysis Comment CULT NOT INDICATED MDM Medical Decision Making Medical Screen Exam Complete: Yes Emergency Medical Condition: Yes Differential Diagnosis Intrauterine , URI, pneumonia highly unlikely, acute abdomen highly unlikely. Narrative Course Patient room to the emergency department, appears well and nontoxic, blood pressure normal, UA shows no proteinuria no bacteria, bedside ultrasound was reassuring for second trimester . She has no complaints of warrant further workup at this time. Discussed p.o. hydration follow with an GASKET WINDER and return to ED criteria. She stable for discharge per Procedures Procedure Narrative ULTRASOUND: Transabdominal views obtained of the uterus, sewing a single intrauterine , patient measures 19 weeks 6 days by biparietal diameter , heart tones 248 by M-mode. motion observed, no obvious abnormalities and no pelvic free fluid Diagnosis Primary Impression: URI (upper respiratory infection) Additional Impression: Referrals: Desmond Duenas MD Patient Instructions: General Instructions, at 19 to 22 Weeks (DC), Upper Respiratory Infection (DC) Departure Forms: Tests/Procedures, Work Release Enter return to work date: Oct 01, 2017 Med/Other Pt SpecificInfo: Prescription(s) given Scripts Fjs672/FA/Omega3/Dha/Fish Oil ( Gummies) 1 Each Tab.chew 1 BOTTLE PO DAILY for nutrition, #120 BOTTLE Prov: Manuel Cody MD 09/29/17 Disposition: 01 DISCHARGE HOME Condition: Stable Manuel Cody MD September 29, 2017 21:27
[2017-09-29 21:50] VITALS: BP 118/68
--- NOTE | 2017-09-30 14:48 | EKG ---
Date Performed: 09/29/2017 Time Performed: 20:07:44 PTAGE: 22 years EKG: SINUS TACHYCARDIA ABNORMAL RHYTHM ECG NO PREVIOUS TRACING DOCTOR: Sami Cobian Interpretating Date/Time 09/30/2017 14:45:23
== END 2017-09-29 22:12 | disposition home or self-care (01) ==
LOC: PHED 19:51
DX: O99.512 Diseases of the respiratory system complicating pregnancy, second trimester (principal); J06.9 Acute upper respiratory infection, unspecified; R00.0 Tachycardia, unspecified; R94.31 Abnormal electrocardiogram [ECG] [EKG]; Z3A.19 19 weeks gestation of pregnancy; Z34.92 Encounter for supervision of normal pregnancy, unspecified, second trimester
CPT/HCPCS: 81001; 84703; 93005; 99285

== ENCOUNTER → 2017-10-11 | Outpatient (CLI) | payer MEDICAID ==
[~2017-10-11] MED LIST changes: -CIPR250T52 PO; -EPIF1AER2 TOPICAL; -IBUP-232 PO; -[UNRECOGNIZED DRUG - CODE] TOPICAL
== END ==
LOC: HPND 13:15
PROVIDERS: ATTEND Obstetrics & Gynecology
DX: O35.1XX0 Maternal care for (suspected) chromosomal abnormality in fetus, not applicable or unspecified (principal); O09.32 Supervision of pregnancy with insufficient antenatal care, second trimester; Z36.3 Encounter for antenatal screening for malformations
CPT/HCPCS: 76811

== ENCOUNTER 2018-02-09 02:33 | Inpatient (IN) ==
[2018-02-09] MEDS ORDERED: Sod Chloride 0.9% Inj 1,000 ML IV.CONT PRN (03:16)
[2018-02-09] MEDS ORDERED: Naloxone Inj 0.4 MG/ML Vial IV.PUSH PRN ×2 (03:16→12:00)
[2018-02-09] MEDS ORDERED: Sodium Chlor 0.9% Inj 500 ML IV.SIG PRN (03:16)
[2018-02-09] MEDS ORDERED: fentaNYL Citrate Inj 100 MCG/2 ML Ampul IV.PUSH PRN (03:16)
[2018-02-09] MEDS ORDERED: Oxytocin 30 Units/500ml Premix 30 UNITS/500 ML BAG IV.SIG ONE (03:16)
--- NOTE | 2018-02-09 03:24 | ED ---
History of Present Illness Primary Care Physician: UNKNOWN Chief Complaint: Contractions History of Present Illness: 22-year-old at 39/3 presenting to the OB ED with complaints of contractions. Patient states that around 10:30 PM she began having contractions that initially were every 10 minutes. Throughout the night they become more intense and more frequent now occurring every 2-3 minutes. She denies any gush of fluid, vaginal bleeding or decreased movement. She also denies any fever or chills, chest pain or shortness of breath, dysuria. She states she has had an uncomplicated and is GBS negative. Patient is currently undecided on an epidural. Review of Systems All other systems reviewed negative except as stated in HPI PMFSH - Medical / Surgical Hx Neg / Unobtainable Medical Problems Denied: Yes - Surgical History Surgical History: Surgical History (Last Reviewed 02/09/18 @ 03:19 by Mckay Ribeiro MD, R2) History of placement of ear tubes History of tonsillectomy and adenoidectomy History of ureter repair - Family History Family History: Family History (Last Updated 02/09/18 @ 03:19 by Mckay Ribeiro MD, R2) Other Family history normal - Tobacco History Smoking Status: Never smoker - Alcohol History How Often Do You Have a Drink Containing Alcohol: Never - Substance Use History Substance History: No History of Abuse - Travel History History of Recent Travel: No Medications and Allergies Allergies Allergy/AdvReac Type Severity Reaction Status Date / Time No Known Allergies Allergy Unverified 02/06/18 16:25 Home Medications Medication Instructions Recorded Confirmed Type 3 tab PO DAILY 02/01/18 02/06/18 History Exam Vital signs: Vital Signs 02/09/18 02:48 02/09/18 02:49 Temperature 97.7 F Pulse Rate 94 H Respiratory Rate 16 Blood Pressure 117/65 Intake & Output 02/08/18 02/08/18 02/09/18 06:59 18:59 06:59 Weight 69.4 kg Narrative: GENERAL: Well-nourished, well-developed patient. SKIN: Warm and dry. HEAD: Normocephalic and atraumatic. EYES: No scleral icterus. No injection or drainage. ENT: No nasal drainage noted. Mucous membranes pink. Airway patent. NECK: Supple, trachea midline. No JVD. CARDIOVASCULAR: Regular rate and rhythm without murmurs, gallops, or rubs. RESPIRATORY: Breath sounds equal bilaterally. No accessory muscle use. ABDOMEN/GI: Abdomen soft, non-tender, bowel sounds present, no rebound, no guarding Gravid to 39 weeks size GENITOURINARY: Cervix: Posterior Dilatation: 3 Effacement: 80 Station: -2 Presentation: Vertex Membranes: Bulging Uterine Contractions: Every 2-3 minutes FHT's: Category: 1 Baseline: 135 Reactive: y Variability: Moderate Decels: Absent EXTREMITIES: No cyanosis or edema. BACK: Nontender without obvious deformity. No CVA tenderness. NEUROLOGICAL: Awake and alert. Motor and sensory grossly within normal limits. Five out of 5 muscle strength in all muscle groups. Normal speech. Assessment and Plan - Diagnosis (1) Uterine contractions during Code(s): O62.2 - Other uterine inertia Status: Acute (2) 39 weeks gestation of Code(s): Z3A.39 - 39 weeks gestation of Status: Acute - Plan 22-year-old at 39/3 presenting to the OB ED with contractions. Found to be 3/80/-2 with bulging bag on admission. Category 1 tracing with contractions every 2-3 minutes. GBS negative -Admit to labor and delivery -Currently undecided on epidural -Routine labor and delivery orders Discharge Plan - Discharge Disposition Patient Disposition: 30 Still Patient - Discharge Condition Condition: Good - Physicians Team ED Provider: Scott Kirkland Primary Care Provider: UNKNOWN, - Rxs /Orders / Referrals /Forms Prescriptions: No Action 3 tab PO DAILY - Discharge Instructions Print Language: Kyrgyz
[2018-02-09] MEDS ORDERED: Citric Acid/Sodium Citrate Liq 30 ML UDC PO SCH (03:30)
[2018-02-09 03:47] LABS: Baso # (Auto) 0.1 th/mm3 (0.0-0.2); Baso % (Auto) 0.4 % (0.0-2.0); Eos # (Auto) 0.2 th/mm3 (0.0-0.4); Eos % (Auto) 1.7 % (0.0-4.0); Hematocrit 32.5 % (35.0-46.0); Hemoglobin 10.4 gm/dL (11.6-15.3); Lymph # (Auto) 2.5 th/mm3 (1.0-4.8); Lymph % (Auto) 17.9 % (9.0-44.0); Mean Corpuscular Hemoglobin 20.5 pg (27.0-34.0); Mean Platelet Volume 9.3 fL (7.0-11.0); Mono % (Auto) 14.5 % (0.0-8.0); Neut # (Auto) 9.2 th/mm3 (1.8-7.7); Neut % (Auto) 65.5 % (16.0-70.0); Platelet Count 208 th/mm3 (150-450); Red Blood Count 5.08 mil/mm3 (4.00-5.30); Red Cell Distribution Width 19.5 % (11.6-17.2); White Blood Count 14.1 th/mm3 (4.0-11.0)
[2018-02-09 03:52] LABS: Bacteria,Urine Rare /hpf; Bilirubin,Urine Negative (Negative); Clarity,Urine Clear (Clear); Color,Urine Yellow (Yellw/Straw); Glucose,Urine (UA) Negative (Negative); Leukocyte Esterase,Urine Small (Negative); Mucus,Urine Few /lpf (Occasional); Nitrite,Urine Negative (Negative); Specific Gravity,Urine 1.008 (1.002-1.035); Squamous Epithelial Cell,Urine 3 /hpf (0-5)
[2018-02-09 03:56] LABS: Amphetamine Urine With Conf Neg (Neg); Benzodiazepine Urine With Conf Neg (Neg)
[2018-02-09] MEDS ORDERED: Lidocaine PF 1% Inj 30 ML Vial ONE (08:24)
[2018-02-09] MEDS: fentaNYL Citrate Inj 100 MCG/2 ML Ampul IV.PUSH PRN ×2 (08:33→10:22)
[2018-02-09] MEDS ORDERED: fentaNYL 2MCG-Bupiv 0.125% Epi 150 ML EPIDURAL ONE (10:42)
[2018-02-09] MEDS ORDERED: Lidocaaine 1.5%/Epinephrine 1:200,000 PF Inj 5 ML Amp ONE (10:44)
[2018-02-09] MEDS ORDERED: Lidocaine PF 1% Inj 5 ML Vial ONE (10:44)
[2018-02-09] MEDS ORDERED: fentaNYL 2MCG-Bupiv 0.125% Epi 150 ML EPIDURAL PRN (11:35)
[2018-02-09] MEDS ORDERED: fentaNYL Citrate Inj 100 MCG/2 ML Ampul EPIDURAL ONE (11:35)
[2018-02-09] MEDS ORDERED: Witch Hazel 50%/Glyderin 12.5% 40 Pad Jar RECTAL PRN (12:00)
[2018-02-09] MEDS ORDERED: Bisacodyl 10 MG Supp RECTAL PRN (12:00)
[2018-02-09] MEDS ORDERED: Benzocaine 20% Top Spray 60 ML Can TOPICAL PRN (12:00)
[2018-02-09] MEDS ORDERED: Oxytocin 30 Units/500ml Premix 30 UNITS/500 ML BAG IV.CONT PRN (12:00)
--- NOTE | 2018-02-09 12:00 | P.OBDELI ---
Weeks Gestation: 39 Patient Started Active Labor: Yes Active Labor Start Date: 02/09/18 Active Labor Start Time: 03:30 Medical Induction of Labor: No Artificial Rupture of Membrane: Yes Artificial ROM Date: 02/09/18 Artificial ROM Time: 10:00 Anesthesia: Epidural Episiotomy: none Vaginal Delivery: Normal Presentation: Occiput anterior Nuchal Cord: None Delayed Cord Clamping (45 sec): Yes Placenta: Spontaneous delivery Laceration: None Estimated blood loss (mL): 100 : Male ( 9/9) Additional Information: 22-year-old at 39/3 presented in labor this morning, delivery uncomplicated.
[2018-02-09] MEDS ORDERED: Diphtheria/Tetanus/Pertussis Vaccine Inj 0.5 ML Syringe IM ONE (16:00)
[2018-02-09] MEDS ORDERED: Measles/Mumps/Rubella Vaccine Inj 0.5 ML Vial SQ ONE (16:00)
[2018-02-09] MEDS ORDERED: Zolpidem Tartrate 5 MG Tablet PO PRN (21:00)
--- NOTE | 2018-02-10 07:11 | P.PNOB ---
Subjective Post day: 1 Interval history: Patient is a 22-year-old delivered at 39 weeks and 3 days. Patient is day 1 after . Patient's pain is well-controlled. Patient reports eating and drinking without any nausea or vomiting. Patient reports minimal bleeding. Patient has passed gas but no bowel movements. Patient is walking without lower extremity pain or shortness of breath. Patient reports desire for contraception. She is going to get an IUD. Objective Vital Signs/I&O: Vital Signs 02/09/18 07:14 02/09/18 08:39 02/09/18 09:36 Temperature 98.7 F Pulse Rate 94 H 96 H Respiratory Rate 18 18 18 Blood Pressure 119/74 118/58 L 02/09/18 09:37 02/09/18 09:42 02/09/18 10:55 Temperature 97.8 F Pulse Rate 96 H 106 H Respiratory Rate Blood Pressure 126/75 135/78 02/09/18 11:06 02/09/18 11:08 02/09/18 11:10 Temperature Pulse Rate 92 H 95 H Respiratory Rate 18 Blood Pressure 128/82 110/57 L 02/09/18 11:15 02/09/18 11:20 02/09/18 11:30 Temperature Pulse Rate 90 96 H 107 H Respiratory Rate Blood Pressure 96/56 L 127/62 02/09/18 11:40 02/09/18 12:00 02/09/18 12:13 Temperature Pulse Rate 100 H Respiratory Rate 18 18 Blood Pressure 139/84 02/09/18 12:15 02/09/18 12:30 02/09/18 12:36 Temperature 98.7 F Pulse Rate 100 H 97 H Respiratory Rate 18 Blood Pressure 100/54 L 105/43 L 02/09/18 12:45 02/09/18 13:00 02/09/18 13:52 Temperature Pulse Rate 94 H 87 Respiratory Rate 18 18 Blood Pressure 111/57 L 109/46 L 02/09/18 14:52 02/09/18 20:05 Temperature 97.8 F 99.1 F Pulse Rate 87 103 H Respiratory Rate 16 18 Blood Pressure 119/64 108/50 L Result Diagrams: 02/09/18 03:30 Objective Remarks: GENERAL: Well-nourished, well-developed patient. CARDIOVASCULAR: Regular rate and rhythm without murmurs, gallops, or rubs. RESPIRATORY: Breath sounds equal bilaterally. No accessory muscle use. ABDOMEN/GI: Abdomen soft, non-tender. Fundus: Firm, non-tender at umbilicus. GENITOURINARY: Light to moderate bleeding. EXTREMITIES: No cyanosis or edema, non-tender, without signs of DVT. Medications and IVs: Active Medications Acetaminophen (Tylenol) 650 mg PO Q4H PRN PRN Reason: PAIN SCALE 1 TO 2 Al Hydroxide/Mg Hydroxide (Milk Of Magnesia Liq) 30 ml PO Q12H PRN PRN Reason: Mild Constipation Benzocaine (Americaine 20% Top [place]) 1 spray TOPICAL Q4H PRN PRN Reason: For Perineum Discomfort Bisacodyl (Dulcolax Supp) 10 mg RECTAL DAILY PRN PRN Reason: SEVERE CONSITIPATION Citric Acid/Sodium Citrate (Sodium Citrate/Citric Acid Liq) 30 ml PO [facility]UROS[facility]GEON [facility] Stop: 02/13/18 03:29 Ephedrine Sulfate (Ephedrine/Ns Syringe) 10 mg IV.PUSH UNSCH PRN PRN Reason: SEE LABEL COMMENTS Stop: 02/10/18 11:35 Fentanyl Citrate (Fentanyl Inj) 50 mcg IV.PUSH Q1H PRN PRN Reason: Pain Scale 3 - 5 Fentanyl Citrate (Fentanyl Inj) 100 mcg IV.PUSH Q1H PRN PRN Reason: PAIN SCALE 6 TO 10 Last Admin: 02/09/18 10:22 Dose: 100 mcg Lactated Ringer's (Lr 1000 Ml Inj) 1,000 mls @ 125 mls/hr IV.CONT .Q8H [facility] Last Admin: 02/10/18 03:37 Dose: Not Given Lactated Ringer's (Lr 1000 Ml Inj) 1,000 mls @ 3,000 mls/hr IV.SIG UNSCH PRN PRN Reason: compromise or epidural Sodium Chloride (Ns Inj) 500 mls @ 1,000 mls/hr IV.SIG UNSCH PRN PRN Reason: SEE LABEL COMMENTS Sodium Chloride (Ns Inj) 1,000 mls @ 100 mls/hr IV.CONT .Q10H PRN PRN Reason: SEE LABEL COMMENTS Fentanyl/Bupivacaine/Sodium Chlor (Fentanyl 2 Mcg-Bupiv 0.125% Epi) 150 mls @ 10 mls/hr EPIDURAL PRN PRN PRN Reason: for Labor Pain Oxytocin (Pitocin 30 Units/Ns 500 Ml Premix) 30 units in 500 mls @ 100 mls/hr IV.CONT UNSCH PRN PRN Reason: Heavy bleeding Ibuprofen (Motrin) 800 mg PO Q8H PRN PRN Reason: For Cramping Last Admin: 02/09/18 22:15 Dose: 800 mg Lactulose (Lactulose Liq) 30 ml PO DAILY PRN PRN Reason: SEVERE CONSITIPATION Lidocaine HCl (Xylocaine 1% Inj) 0.1 ml I-DERMAL PRN PRN PRN Reason: For IV start Stop: 02/12/18 03:15 Lidocaine HCl (Xylocaine 1% Inj) 10 ml INFILTRATN PRN PRN PRN Reason: For episiotomy repair Stop: 02/11/18 03:15 Mineral Oil (Muri-Lube Oil) 10 ml TOPICAL PRN PRN PRN Reason: PRN perineal massage Miscellaneous Information (Misc Information) 1 each OTHER UNSCH PRN PRN Reason: SEE LABEL COMMENTS Stop: 02/10/18 11:35 Miscellaneous Information (Misc Information) 1 each OTHER UNSCH PRN PRN Reason: SEE LABEL COMMENTS Stop: 02/10/18 11:35 Naloxone HCl (Narcan Inj) 0.1 mg IV.PUSH Q2M PRN PRN Reason: for opiate reversal Naloxone HCl (Narcan Inj) 0.1 mg IV.PUSH Q2M PRN PRN Reason: for opiate reversal Ondansetron HCl (Zofran Inj) 4 mg IV.PUSH Q6H PRN PRN Reason: NAUSEA OR VOMITING Ondansetron HCl (Zofran Odt) 4 mg PO Q6H PRN PRN Reason: NAUSEA OR VOMITING Senna/Docusate Sodium (Franci-Colace) 1 tab PO BID [facility] Sennosides (Senokot) 17.2 mg PO Q12H PRN PRN Reason: Moderate Constipation Sodium Chloride (Ns Flush) 2 ml IV.FLUSH BID [facility] Last Admin: 02/10/18 03:37 Dose: Not Given Sodium Chloride (Ns Flush) 2 ml IV.FLUSH PRN PRN PRN Reason: FLUSH AFTER USING IV ACCESS Witch [place]/Glycerin (Tucks Pads) 1 applicatio RECTAL QID PRN PRN Reason: HEMORRHOIDS Last Admin: 02/09/18 16:37 Dose: 1 applicatio Zolpidem Tartrate (Ambien) 5 mg PO HS PRN PRN Reason: SLEEP Assessment and Plan - Diagnosis (1) Normal course Code(s): Z39.2 - Encounter for routine follow-up Status: Acute - Plan Patient is a 22-year-old delivered at 39 weeks and 3 days. Patient is day 1 after . Patient was counseled to do 6 weeks of pelvic rest. Patient was counseled to follow up in 6 weeks. Patient requested follow-up and contraception. --AF VSS --Continue routine care --Motrin when necessary for pain --Encourage OOB --Pelvic rest for 6 weeks will need follow-up appointment at that time. --Contraception: Patient reports that she is getting an IUD in 6 weeks. --Anticipate discharge this afternoon or tomorrow depending on baby's discharge from the pediatric team
[2018-02-10] MEDS: Senna/Docusate Sodium 8.6/50 MG Tablet PO SCH ×3 (07:41→21:47)
[2018-02-10 08:13] VITALS: O2SAT 97
--- NOTE | 2018-02-10 14:00 | P.PNADD ---
Addendum to Inpatient Note Reason for Addendum: Additional Documentation Additional information: Subjective: Resident team paged at 1:30 PM by nurse Radha who stated that the patient complained of chest pain that started about 2 hours ago. I went to evaluate patient. She was in the nursery, standing up, overlooking nursing staff change her baby. Resident returned patient to her room to examine her. Patient reports that she started having upper back pain and chest pain about 2 hours ago. She reports that it is worse when taking deep breaths. She also complains of lower back pain. She reports shortness of breath, but this was not observed when walking with the patient back to her room, during examination, or walking back to the nursery. Objective: Heart rate 86 Respiratory rate 20 Blood pressure 117/69 Cardiovascular: Regular rate and rhythm, S1, S2, no murmurs, no gallops, no rubs Respiratory: Clear to auscultation bilaterally, no wheezes, no rales, full breath sounds Musculoskeletal: Patient has point tenderness along the entire trapezius muscle Extremities: No pedal edema, calves nontender, pulses within normal limits Assessment and plan: This is likely musculoskeletal pain. Patient should continue her Motrin when necessary. She should also continue to be OOB. If patient continues to have this pain and her vital signs change, will reassess. Discussed with Dr. Gavin
[2018-02-10] MEDS: Acetaminophen 325 MG Tablet PO PRN (14:17)
[2018-02-10 19:41] VITALS: RESP 18
[2018-02-11] MEDS: Acetaminophen 325 MG Tablet PO PRN ×3 (03:12→13:09)
[2018-02-11 08:35] VITALS: BP 105/51; PULSE 87; TEMP 98.1
[2018-02-11] MEDS: Senna/Docusate Sodium 8.6/50 MG Tablet PO SCH (09:08)
--- NOTE | 2018-02-11 09:24 | P.PNOB ---
Subjective Post day: 2 Interval history: Patient is a 22-year-old delivered at 39 weeks and 3 days. Patient is day 2 after . Patient's pain is well-controlled. Patient reports eating and drinking without any nausea or vomiting. Patient reports minimal bleeding. Patient has passed gas but no bowel movements. Patient is walking without lower extremity pain or shortness of breath. Patient reports desire for contraception. She is going to get an IUD. Objective Vital Signs/I&O: Vital Signs 02/10/18 13:25 02/10/18 19:39 02/11/18 08:05 Temperature 97.6 F 98.1 F Pulse Rate 86 94 H 87 Respiratory Rate 20 18 18 Blood Pressure 117/69 110/61 105/51 L Result Diagrams: 02/09/18 03:30 Objective Remarks: GENERAL: Well-nourished, well-developed patient. CARDIOVASCULAR: Regular rate and rhythm without murmurs, gallops, or rubs. RESPIRATORY: Breath sounds equal bilaterally. No accessory muscle use. ABDOMEN/GI: Abdomen soft, non-tender. Fundus: Firm, non-tender at umbilicus. GENITOURINARY: Light to moderate bleeding. EXTREMITIES: No cyanosis or edema, non-tender, without signs of DVT. Medications and IVs: Active Medications Acetaminophen (Tylenol) 650 mg PO Q4H PRN PRN Reason: PAIN SCALE 1 TO 2 Last Admin: 02/11/18 09:08 Dose: 650 mg Al Hydroxide/Mg Hydroxide (Milk Of Magnesia Liq) 30 ml PO Q12H PRN PRN Reason: Mild Constipation Benzocaine (Americaine 20% [place]) 1 spray TOPICAL Q4H PRN PRN Reason: For Perineum Discomfort Bisacodyl (Dulcolax Supp) 10 mg RECTAL DAILY PRN PRN Reason: SEVERE CONSITIPATION Citric Acid/Sodium Citrate (Sodium Citrate/Citric Acid Liq) 30 ml PO ROVING DEPARTMENT END [facility] Stop: 02/13/18 03:29 Fentanyl Citrate (Fentanyl Inj) 50 mcg IV.PUSH Q1H PRN PRN Reason: Pain Scale 3 - 5 Fentanyl Citrate (Fentanyl Inj) 100 mcg IV.PUSH Q1H PRN PRN Reason: PAIN SCALE 6 TO 10 Last Admin: 02/09/18 10:22 Dose: 100 mcg Lactated Ringer's (Lr 1000 Ml Inj) 1,000 mls @ 125 mls/hr IV.CONT .Q8H CARMEN Last Admin: 02/11/18 07:20 Dose: Not Given Lactated Ringer's (Lr 1000 Ml Inj) 1,000 mls @ 3,000 mls/hr IV.SIG UNSCH PRN PRN Reason: compromise or epidural Sodium Chloride (Ns Inj) 500 mls @ 1,000 mls/hr IV.SIG UNSCH PRN PRN Reason: SEE LABEL COMMENTS Sodium Chloride (Ns Inj) 1,000 mls @ 100 mls/hr IV.CONT .Q10H PRN PRN Reason: SEE LABEL COMMENTS Fentanyl/Bupivacaine/Sodium Chlor (Fentanyl 2 Mcg-Bupiv 0.125% Epi) 150 mls @ 10 mls/hr EPIDURAL PRN PRN PRN Reason: for Labor Pain Oxytocin (Pitocin 30 Units/Ns 500 Ml Premix) 30 units in 500 mls @ 100 mls/hr IV.CONT UNSCH PRN PRN Reason: Heavy bleeding Ibuprofen (Motrin) 800 mg PO Q8H PRN PRN Reason: For Cramping Last Admin: 02/11/18 03:11 Dose: 800 mg Lactulose (Lactulose Liq) 30 ml PO DAILY PRN PRN Reason: SEVERE CONSITIPATION Lidocaine HCl (Xylocaine 1% Inj) 0.1 ml I-DERMAL PRN PRN PRN Reason: For IV start Stop: 02/12/18 03:15 Mineral Oil (Muri-Lube Oil) 10 ml TOPICAL PRN PRN PRN Reason: PRN perineal massage Naloxone HCl (Narcan Inj) 0.1 mg IV.PUSH Q2M PRN PRN Reason: for opiate reversal Naloxone HCl (Narcan Inj) 0.1 mg IV.PUSH Q2M PRN PRN Reason: for opiate reversal Ondansetron HCl (Zofran Inj) 4 mg IV.PUSH Q6H PRN PRN Reason: NAUSEA OR VOMITING Ondansetron HCl (Zofran Odt) 4 mg PO Q6H PRN PRN Reason: NAUSEA OR VOMITING Senna/Docusate Sodium (Franci-Colace) 1 tab PO BID [facility] Last Admin: 02/11/18 09:08 Dose: 1 tab Sennosides (Senokot) 17.2 mg PO Q12H PRN PRN Reason: Moderate Constipation Sodium Chloride (Ns Flush) 2 ml IV.FLUSH BID CARMEN Last Admin: 02/10/18 22:26 Dose: Not Given Sodium Chloride (Ns Flush) 2 ml IV.FLUSH PRN PRN PRN Reason: FLUSH AFTER USING IV ACCESS Witch [place]azmín/Glycerin (Tucks Pads) 1 applicatio RECTAL QID PRN PRN Reason: HEMORRHOIDS Last Admin: 02/09/18 16:37 Dose: 1 applicatio Zolpidem Tartrate (Ambien) 5 mg PO HS PRN PRN Reason: SLEEP Assessment and Plan - Diagnosis (1) Normal course Code(s): Z39.2 - Encounter for routine follow-up Status: Acute - Plan Patient is a 22-year-old delivered at 39 weeks and 3 days. Patient is day 2 after . Patient was counseled to do 6 weeks of pelvic rest. Patient was counseled to follow up in 6 weeks. Patient requested follow-up and contraception. --AF VSS --Continue routine care --Motrin when necessary for pain --Encourage OOB --Pelvic rest for 6 weeks will need follow-up appointment at that time. --Contraception: Patient reports that she is getting an IUD in 6 weeks. --Anticipate discharge this afternoon after baby's circumcision
== END 2018-02-11 14:05 | disposition home or self-care (01) ==
LOC: HOBED 02:33 → H2E 03:28 → H1EA 14:12
PROVIDERS: ADMIT Obstetrics & Gynecology Maternal & Fetal Medicine; ATTEND Obstetrics & Gynecology Maternal & Fetal Medicine